=== PATIENT | female | born 1950 | race Caucasian/White ===

== ENCOUNTER → 2016-08-20 | Outpatient (CLI) | payer OTHER ==
[2016-06-12 12:20] VITALS: BP 130/78
[~2016-08-20] MED LIST: CIPR500T94 PO; CYCL10TA2 PO; LANS30CA17 PO; LISI1TAB5 PO; METR500T PO; PREG100C PO; TRAM-29 PO; [UNRECOGNIZED DRUG - OTHER] IH
--- NOTE | 2016-08-20 15:28 | RAD ---
Indication cough. PA and lateral views of the chest were obtained and are compared to an examination 9 years earlier. The heart and pulmonary vessels appear normal. The lungs are clear. There is no pleural fluid or pneumothorax. A significant change when compared to the previous exam is not seen. IMPRESSION: No acute finding apparent in the chest
== END | disposition home or self-care (01) ==
LOC: DXRAD 15:01
PROVIDERS: ATTEND Nurse Practitioner Family
DX: R05 Cough (principal); R52 Pain, unspecified
CPT/HCPCS: 71020

== ENCOUNTER 2016-09-17 19:09 | Emergency (ER) | payer SELFPAY ==
[~2016-09-17] VITALS: Ht 160 cm; Wt 87.1 kg
[2016-09-17 19:10] VITALS: BP 142/81
--- NOTE | 2016-09-17 19:12 | PHYS DOC ---
General Stated Complaint: RIGHT WRIST PAIN Time Seen by MD: 19:11 Source: patient, family Problems: History of Present Illness Initial Comments Patient with for right wrist pain. Patient is somewhat hard of hearing so history is difficult, but does facilitate. Patient has had some discomfort over the ulnar volar aspect of the right wrist and distal forearm today. There is no history of injury or trauma. She works as a medical records custodian on for , says that she hasn't been working very hard lately as many people are often for the . She does have a previous history of fracture to the right wrist as a child with some chronic deformity. She says the pain is worse when she tries to move her wrist which tries to pronate or supinate her hand. There is no history of direct injury or trauma. She has no distal complaints of weakness numbness or tingling within the fingers. She says the area feels warm to her and feels "splayed out" over the area of the flexor tendons of the wrist and with that she's not had before. She has no fever or chills, no systemic symptoms. She has no complaints of distal weakness numbness or tingling within the fingers of the hand. Patient's really done nothing for this at home and notes no other factors except as described increase or decrease her symptoms. Patient's past history is notable for fibromyalgia as well as osteoporosis . She does have a previous history of right wrist fracture as described. She is a nonsmoker and nonuser of ethanol. Allergies: Coded Allergies: Penicillins (Verified Allergy, Intermediate, 11/26/15) aspirin (Verified Allergy, Intermediate, 11/26/15) meloxicam (Verified Allergy, Intermediate, 11/26/15) Past Medical History Medical History: hypertension, other Social History Smoker: non-smoker Alcohol: none Review of Systems Constitutional: no symptoms reported Musculoskeletal: see HPI Skin: no symptoms reported Psychiatric/Neurological: no symptoms reported Physical Exam General Appearance: WD/WN, no apparent distress Extremities: other Neurologic/Psychiatric: no motor/sensory deficits, alert, normal mood/affect, oriented x 3 Skin: normal color Comments Generally this is a well-developed well-nourished white female in no acute distress. Vitals are as noted. Pertinent findings on physical exam notes that the patient has what appears to be a chronic bony deformity of the left wrist. The wrist is tender over the area of the volar ulnar aspect of the very distal left forearm. Patient really has no gross edema of the site. There is no redness or cords. There is no venous dilatation or swelling of the forearm suggesting a clot. Patient states the area feels warm to her, there may be just very minimal change in temperature compared with the other side. Patient also indicates that she has pain to palpation over the flexor tendons of the wrist. There is no signs of injury or trauma. The elbow is clear. There are no distal finger or wrist motor, sensory, or vascular deficits appreciated. Remainder of physical exam is clinically unremarkable. Orders, Labs, Meds Old charts note a single prior ER visit for lumbosacral strain. She was admitted to the hospital in November of last year for diverticulitis. X-rays of the right wrist show no acute fracture dislocation per the emergency physician. There is no bony growth. 2030 Patient resting comfortably in the ED. Discussed with patient the uncertain cause or wrist pain. This may be some sort of unrecalled repetitive strain injury. There is certainly no evidence of acute trauma. There is no evidence of upper extremity clot, with no venous dilatation no swelling, no signs of DVT. There is no obvious erythema suggestive of cellulitis, no fluctuance suggestive of abscess, or other obvious source. I discussed with the patient her this time, I think will treat this conservatively. We'll give her a wrist splint as well as some medication at home for pain. Hopefully this will clear up on its own in fairly short order with local care including rest ice and elevation. We'll ask her to follow up with primary care or return to the ER sooner as needed if worsen anyway. voices understanding of this instruction. She looks well, in no acute discomfort distress, okay for discharge home at this time. TOÑO ROTHMAN MD Sep 17, 2016 19:12
[2016-09-17] MEDS: HYDROCODONE/APAP 7.5/325MG TABLET. PO ONE (20:58)
--- NOTE | 2016-09-18 08:27 | RAD ---
Indication pain and swelling AP oblique and lateral views of the right wrist were obtained. No acute or significant bony finding is seen.
== END 2016-09-17 21:07 | disposition home or self-care (01) ==
LOC: ER 19:11
DX: M25.531 Pain in right wrist (principal); I10 Essential (primary) hypertension; M81.0 Age-related osteoporosis without current pathological fracture; M79.7 Fibromyalgia; Z88.0 Allergy status to penicillin; Z88.8 Allergy status to other drugs, medicaments and biological substances; Z88.6 Allergy status to analgesic agent
CPT/HCPCS: 29125; 73110; 99284-25

== ENCOUNTER → 2016-10-24 | Outpatient (CLI) | payer OTHER ==
[~2016-10-24] MED LIST changes: +CYCL-331 PO; -CYCL10TA2 PO; -LANS30CA17 PO; +LANS30CA66 PO; -TRAM-29 PO; +TRAM-48 PO
--- NOTE | 2016-10-24 16:33 | RAD ---
Indication abdominal pain with bloating. Supine films of the abdomen were obtained. Note is made of a previous examination over 9 years ago. The lung bases are clear. The abdominal gas pattern is normal. No organomegaly or abnormal calculi are seen. Clips are seen in the gallbladder fossa. IMPRESSION: Unremarkable plain films of the abdomen.
== END | disposition home or self-care (01) ==
LOC: DXRAD 16:06
PROVIDERS: ATTEND Nurse Practitioner
DX: R14.0 Abdominal distension (gaseous) (principal)
CPT/HCPCS: 74000

== ENCOUNTER 2019-02-17 14:24 | Emergency (ER) | payer SELFPAY ==
[~2019-02-17] VITALS: Ht 160 cm; Wt 81.4 kg
[~2019-02-17 14:24] MED LIST changes: +CEPH-264 PO; +LISI1TAB19 PO; -LISI1TAB5 PO
[2019-02-17] MEDS ORDERED: IV NORMAL SALINE 1,000ML 1,000 ML IV ONE (15:15)
[2019-02-17] MEDS ORDERED: ONDANSETRON PF 4 MG/2 ML VIAL. IV ONE (15:30)
[2019-02-17] MEDS ORDERED: IOHEXOL 300 MG/ML 75 ML VIAL. IV ONE (15:30)
[2019-02-17 15:33] LABS: BASO # 0.1 x10^3/uL (0.0-0.2); BASO % 1 % (0-3); EOS # 0.1 x10^3/uL (0.0-0.7); EOS % 2 % (0-3); HEMATOCRIT 48.8 % (36.0-47.0); HEMOGLOBIN 16.5 g/dL (12.0-15.5); LYMPH # 2.2 x10^3/uL (1.0-4.8); LYMPH % 29 % (24-48); MEAN CORPUSCULAR HEMOGLOBIN 30 pg (25-35); MEAN CORPUSCULAR HGB CONC 34 g/dL (31-37); MEAN CORPUSCULAR VOLUME 88 fL (79-100); MONO # 0.7 x10^3/uL (0.0-1.1); MONO % 9 % (0-9); NEUT # 4.4 x10^3uL (1.8-7.7); NEUT % 59 % (31-73); PLATELET COUNT 391 x10^3/uL (140-400); RED BLOOD COUNT 5.55 x10^6/uL (3.50-5.40); RED CELL DISTRIBUTION WIDTH 13.8 % (11.5-14.5); WHITE BLOOD COUNT 7.4 x10^3/uL (4.0-11.0)
[2019-02-17 15:47] LABS: ALBUMIN 3.8 g/dL (3.4-5.0); ALBUMIN/GLOBULIN RATIO 1.1 (1.0-1.7); CALCIUM 9.2 mg/dL (8.5-10.1); CREATININE 0.9 mg/dL (0.6-1.0); GFR 62.3; POTASSIUM 3.9 mmol/L (3.5-5.1); TOTAL BILIRUBIN 1.1 mg/dL (0.2-1.0); TOTAL PROTEIN 7.4 g/dL (6.4-8.2)
--- NOTE | 2019-02-17 16:08 | RAD ---
CT scan of the abdomen and pelvis with contrast 02/17/2019 CLINICAL HISTORY: Abdominal pain and diarrhea. TECHNIQUE: After the intravenous administration of 75 cc of Omnipaque 300, contiguous, 5 mm axial sections were obtained through the abdomen and pelvis. One or more of the following individualized dose reduction techniques were utilized for this study: 1. Automated exposure control. 2. Adjustment of the mA and/or kV according to patient size. 3. Use of iterative reconstruction technique. Images through the lung bases demonstrate minimal dependent subsegmental atelectasis bilaterally. The liver parenchyma has a decreased attenuation consistent with fatty infiltration. The spleen, pancreas, adrenal glands and kidneys are within normal limits. Atherosclerotic calcification of the abdominal aorta and its branches is noted. The abdominal aorta tapers normally. Surgical clips are seen within the gallbladder fossa consistent with a cholecystectomy. No free fluid or free air is seen within the abdomen. There is no evidence of bowel obstruction. Multiple diverticula are seen involving the descending colon and throughout the sigmoid colon. No inflammatory changes are seen in the adjacent fat. Images through the pelvis demonstrate the urinary bladder distended with urine. Calcifications are seen within the pelvis consistent with phleboliths. No free fluid is seen. Minimal S-shaped curvature of the thoracolumbar spine is noted. Degenerative changes are seen involving lower thoracic and throughout the lumbar spine along with both hips. IMPRESSION: No acute abnormality is seen. Electronically signed by: Yoseph Ramirez MD (02/17/2019 4:05 PM) [place] [id number]
--- NOTE | 2019-02-17 17:01 | PHYS DOC ---
Past History Past Medical History: Diverticulitis, Fibromyalgia, Hypertension Past Surgical History: No Surgical History Alcohol Use: None Drug Use: None Adult General Chief Complaint Chief Complaint: NAUSEA/VOMITING/DIARRHEA HPI HPI 60-year-old female presents with central abdominal pain and diarrhea. The patient is deaf but able to read lips and speak. She tells me that she has had intermittent central abdominal pain that is a cramping sensation of moderate intensity over the last couple of weeks. She has also had diarrhea with no normal stools. She has multiple episodes per day. She has diarrhea shortly after eating or drinking almost anything. She is concerned about dehydration. She has been told that she has diverticula in the past. There is a strong family history of abdominal cancers. She has no personal history. She denies recent antibiotic use. She does not have fever or chills. Review of Systems Review of Systems Constitutional: Denies fever or chills [] Eyes: Denies change in visual acuity, redness, or eye pain [] HENT: Denies nasal congestion or sore throat [] Respiratory: Denies cough or shortness of breath [] Cardiovascular: No additional information not addressed in HPI [] GI: abdominal pain, diarrhea [] : Denies dysuria or hematuria [] Musculoskeletal: Denies back pain or joint pain [] Integument: Denies rash or skin lesions [] Neurologic: Denies headache, focal weakness or sensory changes [] Endocrine: Denies polyuria or polydipsia [] All other systems were reviewed and found to be within normal limits, except as documented in this note. Current Medications Current Medications Current Medications Medications (Trade) Dose Ordered Sig/[place] Start Time Stop Time Status Last Admin Dose Admin Iohexol (Omnipaque 300 Mg/ml) 75 ml 1X ONCE 02/17/19 15:30 02/17/19 15:31 DC 02/17/19 15:43 75 ML Ondansetron HCl (Zofran) 4 mg 1X ONCE 02/17/19 15:30 02/17/19 15:31 DC 02/17/19 15:27 4 MG Sodium Chloride 1,000 ml @ 1,000 mls/hr 1X ONCE 02/17/19 15:15 02/17/19 16:14 DC 02/17/19 15:27 1,000 MLS/HR Allergies Allergies Allergies Coded Allergies Type Severity Reaction Last Updated Verified Penicillins Allergy Intermediate 11/26/15 Yes aspirin Allergy Intermediate 11/26/15 Yes meloxicam Allergy Intermediate 11/26/15 Yes Physical Exam Physical Exam Constitutional: Well developed, well nourished, no acute distress, non-toxic appearance. [] HENT: Normocephalic, atraumatic, bilateral external ears normal, oropharynx moist, no oral exudates, nose normal. [] Eyes: PERRLA, EOMI, conjunctiva normal, no discharge. [] Neck: Normal range of motion, no tenderness, supple, no stridor. [] Cardiovascular:Heart rate regular rhythm, no murmur [] Lungs & Thorax: Bilateral breath sounds clear to auscultation [] Abdomen: Bowel sounds normal, soft, mild right sided tenderness, no masses, no pulsatile masses. [] Skin: Warm, dry, no erythema, no rash. [] Back: No tenderness, no CVA tenderness. [] Extremities: No tenderness, no cyanosis, no clubbing, ROM intact, no edema. [] Neurologic: Alert and oriented X 3, normal motor function, normal sensory function, no focal deficits noted. [] Psychologic: Affect normal, judgement normal, mood normal. [] Current Patient Data Vital Signs Vital Signs Date Time Temp Pulse Resp B/P (MAP) Pulse Ox O2 Delivery O2 Flow Rate FiO2 02/17/19 14:42 98.2 88 18 93 Room Air Lab Results Laboratory Tests Test 02/17/19 15:07 White Blood Count 7.4 x10^3/uL (4.0-11.0) Red Blood Count 5.55 x10^6/uL (3.50-5.40) H Hemoglobin 16.5 g/dL (12.0-15.5) H Hematocrit 48.8 % (36.0-47.0) H Mean Corpuscular Volume 88 fL (79-100) Mean Corpuscular Hemoglobin 30 pg (25-35) Mean Corpuscular Hemoglobin Concent 34 g/dL (31-37) Red Cell Distribution Width 13.8 % (11.5-14.5) Platelet Count 391 x10^3/uL (140-400) Neutrophils (%) (Auto) 59 % (31-73) Lymphocytes (%) (Auto) 29 % (24-48) Monocytes (%) (Auto) 9 % (0-9) Eosinophils (%) (Auto) 2 % (0-3) Basophils (%) (Auto) 1 % (0-3) Neutrophils # (Auto) 4.4 x10^3uL (1.8-7.7) Lymphocytes # (Auto) 2.2 x10^3/uL (1.0-4.8) Monocytes # (Auto) 0.7 x10^3/uL (0.0-1.1) Eosinophils # (Auto) 0.1 x10^3/uL (0.0-0.7) Basophils # (Auto) 0.1 x10^3/uL (0.0-0.2) Sodium Level 139 mmol/L (136-145) Potassium Level 3.9 mmol/L (3.5-5.1) Chloride Level 103 mmol/L (98-107) Carbon Dioxide Level 22 mmol/L (21-32) Anion Gap 14 (6-14) Blood Urea Nitrogen 25 mg/dL (7-20) H Creatinine 0.9 mg/dL (0.6-1.0) Estimated GFR (Cockcroft-Gault) 62.3 BUN/Creatinine Ratio 28 (6-20) H Glucose Level 128 mg/dL (70-99) H Calcium Level 9.2 mg/dL (8.5-10.1) Total Bilirubin 1.1 mg/dL (0.2-1.0) H Aspartate Amino Transferase (AST) 38 U/L (15-37) H Alanine Aminotransferase (ALT) 33 U/L (14-59) Alkaline Phosphatase 73 U/L (46-116) Total Protein 7.4 g/dL (6.4-8.2) Albumin 3.8 g/dL (3.4-5.0) Albumin/Globulin Ratio 1.1 (1.0-1.7) EKG EKG [] Radiology/Procedures Radiology/Procedures [] Impressions: CT scan of the abdomen and pelvis with contrast 02/17/2019 CLINICAL HISTORY: Abdominal pain and diarrhea. TECHNIQUE: After the intravenous administration of 75 cc of Omnipaque 300, contiguous, 5 mm axial sections were obtained through the abdomen and pelvis. One or more of the following individualized dose reduction techniques were utilized for this study: 1. Automated exposure control. 2. Adjustment of the mA and/or kV according to patient size. 3. Use of iterative reconstruction technique. Images through the lung bases demonstrate minimal dependent subsegmental atelectasis bilaterally. The liver parenchyma has a decreased attenuation consistent with fatty infiltration. The spleen, pancreas, adrenal glands and kidneys are within normal limits. Atherosclerotic calcification of the abdominal aorta and its branches is noted. The abdominal aorta tapers normally. Surgical clips are seen within the gallbladder fossa consistent with a cholecystectomy. No free fluid or free air is seen within the abdomen. There is no evidence of bowel obstruction. Multiple diverticula are seen involving the descending colon and throughout the sigmoid colon. No inflammatory changes are seen in the adjacent fat. Images through the pelvis demonstrate the urinary bladder distended with urine. Calcifications are seen within the pelvis consistent with phleboliths. No free fluid is seen. Minimal S-shaped curvature of the thoracolumbar spine is noted. Degenerative changes are seen involving lower thoracic and throughout the lumbar spine along with both hips. IMPRESSION: No acute abnormality is seen. Electronically signed by: Yoseph Huitron MD (02/17/2019 4:05 PM) [id number] DICTATED AND SIGNED BY: YOSEPH HUITRON MD DATE: 02/17/19 [id number] CC: CHRIS HUTCHINS DO; SCOUT IBARRA [employer]-C ~ Course & Med Decision Making Course & Med Decision Making Pertinent Labs and Imaging studies reviewed. (See chart for details) The patient's labs show some dehydration. See the chart for more details. We have given the patient a liter of normal saline. The CT of the abdomen and pel vis does not show any acute findings. She does have diverticula. See official read for more details. I do not have a conclusive reason for her diarrhea. It does not appear to be diverticulitis. We have not gotten a stool sample in the ED as the patient has not had diarrhea here. I have advised that she consider giving a stool sample to her primary care physician for further workup. She is in agreement with this plan. She can also try [id number] diarrheal medications to see if they're helpful. She is stable for discharge at this time. [] Dragon Disclaimer Dragon Disclaimer This electronic medical record was generated, in whole or in part, using a voice recognition dictation system. Departure Departure: Impression: Primary Impression: Diarrhea Additional Impression: Right-sided abdominal pain of unknown cause Disposition: HOME, SELF-CARE Condition: STABLE Referrals: SCOUT IBARRA (PCP) Patient Instructions: Diarrhea, Diet for Diarrhea, Adult Problem Qualifiers Primary Impression: Diarrhea Diarrhea type: unspecified type Qualified Codes: R19.7 - Diarrhea, unsp ecified CHRIS HUTCHINS DO Feb 17, 2019 17:01
[2019-02-17 17:17] VITALS: BP 110/87
[2019-02-17 18:22] LABS: BACTERIA,URINE FEW /HPF (0-FEW); BILIRUBIN,URINE NEG (NEG); CLARITY,URINE HAZY; COLOR,URINE YELLOW; GLUCOSE,URINE 250 mg/dL (NEG); NITRITE,URINE NEG (NEG); UROBILINOGEN,URINE 0.2 mg/dL (0.2 mg/dL)
[2019-02-17 18:23] LABS: GRANULAR CASTS,URINE OCC /HPF; SQUAMOUS EPITHELIAL CELL,UR MOD /LPF
== END 2019-02-17 18:06 | disposition home or self-care (01) ==
LOC: ER 14:24
DX: R19.7 Diarrhea, unspecified (principal); R10.9 Unspecified abdominal pain; M79.7 Fibromyalgia; I10 Essential (primary) hypertension; Z88.0 Allergy status to penicillin; Z88.6 Allergy status to analgesic agent; Z88.8 Allergy status to other drugs, medicaments and biological substances
CPT/HCPCS: 36415; 74177; 80053; 81001; 85025; 96361; 96374; 99285; J2405; Q9967; J7030